=== PATIENT | female | born 1995 | race Caucasian/White ===

== ENCOUNTER → 2018-02-13 | Outpatient (REF) | payer OTHER | LOC: M LAB REF 10:32 | DX: J02.9 Acute pharyngitis, unspecified (principal) ==

== ENCOUNTER → 2021-07-28 | Outpatient (CLI) | payer OTHER ==
--- NOTE | 2021-07-28 13:50 | REP ---
INDICATION: ANATOMY. COMPARISON: None. TECHNIQUE: Standard 2nd trimester anatomy screening protocol. FINDINGS: Scanning demonstrates a viable single intrauterine gestation in a cephalic lie. motion is observed and heart rate is recorded at 164 beats per minute. A posterior, grade zero placenta is seen without evidence of previa. Umbilical cord demonstrates a mid insertion. Amniotic fluid is subjectively normal. Closed cervical length is measured at 3.6 cm transabdominally. No extrauterine abnormality is observed. No anomaly is seen. The following anatomic structures are identified and felt to be sonographically unremarkable: cranium, choroid plexus, cavum, cerebellum and posterior fossa, face and profile, lungs, four-chamber heart with left and right ventricular outflow tract views, diaphragm, left-sided stomach, abdominal wall cord insertion, three-vessel umbilical cord, kidneys and bladder, spine, and upper and lower extremities. Biometry chart: BPD 5.0 cm; 21 weeks 2 days Head circumference 18 point cm; 20 weeks 1 days Abdominal circumference 71 cm; 22 weeks 1 days Femur length 3.6 cm; 21 weeks 2 days Humeral length 3.5 cm; 22 weeks 0 days HC/AC ratio normal 1.1 Cephalic index normal 0.73 Estimated weight 442 grams, 0 pounds 15 ounces, 58 percentile for 21 weeks 3 days. IMPRESSION: Viable single intrauterine gestation at 21 weeks 4 days by today's composite sonographic criteria. Expected gestational age estimate based on supplied the JOSE is 21 weeks is 3 days. JOSE by prior sonography 12/05/2021. No anomaly. <Electronically signed by Yuniel Simmons > 07/28/21 [id number]
== END ==
LOC: M WHC 07:57
PROVIDERS: ATTEND Specialist
DX: Z34.02 Encounter for supervision of normal first pregnancy, second trimester (principal); Z3A.21 21 weeks gestation of pregnancy

== ENCOUNTER → 2021-09-15 | Outpatient (CLI) | payer OTHER ==
[2021-09-15 17:55] LABS: HEMATOCRIT 36.3 % (36.0-47.0); MEAN CORPUSCULAR HEMOGLOBIN 30.5 pg (27.0-33.0); MEAN CORPUSCULAR HGB CONC 33.1 g/dl (32.0-36.5); MEAN CORPUSCULAR VOLUME 92.1 fl (80.0-96.0); PLATELET COUNT, AUTOMATED 214 10^3/uL (150-450); RED BLOOD COUNT 3.94 10^6/uL (4.00-5.40); WHITE BLOOD COUNT 11.4 10^3/uL (4.0-10.0)
== END ==
LOC: M PLALAB 13:17
PROVIDERS: ATTEND Advanced Practice Midwife
DX: Z36.9 Encounter for antenatal screening, unspecified (principal); Z3A.24 24 weeks gestation of pregnancy

== ENCOUNTER → 2021-11-10 | Outpatient (REF) | payer OTHER | LOC: M LAB REF 16:40 | PROVIDERS: ATTEND Specialist | DX: Z36.85 Encounter for antenatal screening for Streptococcus B (principal) ==

== ENCOUNTER 2021-12-07 21:55 | Inpatient (IN) | payer OTHER ==
[~2021-12-07] VITALS: Ht 157.5 cm; Wt 78.0 kg
[2021-12-07] MEDS ORDERED: PRENTAB9 PO (22:15)
[2021-12-07 22:20] VITALS: BP 139/83
[2021-12-07] MEDS ORDERED: HOME MED LIST COMPLETE! XX SCH (22:35)
[2021-12-07] MEDS ORDERED: PENICILLIN G POTASSIUM IV 5 MU in D5W MINI-BAG PLUS 100 ML IV STA (23:18)
[2021-12-07] MEDS ORDERED: OXYTOCIN DRIP 30 UNITS in IV 1 EA IV PRN ×4 (23:20)
[2021-12-07] MEDS ORDERED: METHYLERGONOVINE MALEATE 0.2 MG/ML VIAL (J2210) IM PRN (23:20)
[2021-12-07] MEDS ORDERED: LIDOCAINE 1% MDV 20ML VIAL INFIL PRN (23:20)
[2021-12-07] MEDS ORDERED: OXYTOCIN DRIP 30 UNITS in IV 1 EA IV SCH (23:20)
[2021-12-07] MEDS ORDERED: OXYTOCIN INJ 10 UNITS/ML VIAL (J2590) IM PRN (23:20)
[2021-12-07] MEDS ORDERED: TRANEXAMIC ACID INJection 1,000 MG in NS 100 ML IV PRN (23:20)
[2021-12-07] MEDS ORDERED: LACTATED RINGER'S 1000 ML IV ONE (23:25)
[2021-12-08] VITALS (60 sets, daily range): BP systolic 92–171; BP diastolic 51–117
[2021-12-08] MEDS: LR 1,000 ML IV SCH ×4 (00:18→14:00)
[2021-12-08 00:35] LABS: HEMATOCRIT 40.3 % (36.0-47.0); HEMOGLOBIN 13.8 g/dl (12.0-15.5); MEAN CORPUSCULAR HEMOGLOBIN 30.3 pg (27.0-33.0); MEAN CORPUSCULAR HGB CONC 34.2 g/dl (32.0-36.5); MEAN CORPUSCULAR VOLUME 88.4 fl (80.0-96.0); PLATELET COUNT, AUTOMATED 185 10^3/uL (150-450); RED BLOOD COUNT 4.56 10^6/uL (4.00-5.40); WHITE BLOOD COUNT 10.9 10^3/uL (4.0-10.0)
[2021-12-08 01:32] LABS: HEPATITIS C VIRUS ABY INDEX 0.2 INDEX (<0.8)
[2021-12-08] MEDS ORDERED: FENTANYL 2MCG/ML ROPIVACAINE 0.2% IN 0.9% NACL 100ML IVBAG As Ordered ONE (03:14)
[2021-12-08] MEDS ORDERED: EPIDURAL/PCA KEYS XX PRN (04:40)
[2021-12-08] MEDS ORDERED: ePHEDrine SULFATE 25 MG/5 ML(5MG/ML) SYRINGE IV PRN (04:40)
[2021-12-08] MEDS ORDERED: LACTATED RINGER'S 1000 ML IV PRN (04:40)
[2021-12-08] MEDS ORDERED: diphenhydrAMINE 50MG/ML VIAL (J1200) IV PRN ×2 (04:40→22:25)
[2021-12-08] MEDS ORDERED: EPIDURAL COMMENT XX SCH (04:40)
[2021-12-08] MEDS ORDERED: ONDANSETRON 4MG/2ML VIAL IV PRN ×3 (04:40→23:25)
[2021-12-08] MEDS ORDERED: REFRIGERATOR IV KEYS XX PRN (04:40)
[2021-12-08] MEDS ORDERED: NALOXONE INJ 0.4MG/1ML VIAL (J2310 PER 1MG) IV PRN ×3 (04:40→22:25)
[2021-12-08] MEDS: FENTANYL/ROPIVACAINE/NACL BAG 100 ML EPIDURAL SCH ×3 (04:49→19:13)
[2021-12-08] MEDS: PENICILLIN G POTASSIUM IV 2.5 MU in IV 1 EA IV SCH ×5 (05:19→20:56)
[2021-12-08] MEDS ORDERED: ceFAZolin SOD 2 GM in IV 1 EA IV ONE (21:45)
[2021-12-08] MEDS ORDERED: BICITRA 30ML SOLN UDC PO ONE (21:45)
[2021-12-08] MEDS ORDERED: AZITHROMYCIN INJ 500 MG, VIAL MATE ADAPTER 1 EACH in NS 250 ML IV ONE (21:45)
[2021-12-08] MEDS ORDERED: MORPHINE PRES-FREE INJ 10 MG/10 ML VIAL As Ordered ONE (22:12)
[2021-12-08] MEDS ORDERED: dexameTHASONE 4 MG/ML 1ML VIAL (J1100 PER 1MG) As Ordered ONE (22:12)
[2021-12-08] MEDS ORDERED: KETOROLAC 60MG 2ML VIAL As Ordered ONE (22:12)
[2021-12-08] MEDS ORDERED: ONDANSETRON 4MG/2ML VIAL As Ordered ONE (22:12)
[2021-12-08] MEDS ORDERED: METOCLOPRAMIDE INJ 10MG/2ML VIAL (J2765 PER 1) As Ordered ONE (22:12)
[2021-12-08] MEDS ORDERED: OXYTOCIN 30 UNITS IN 0.9% NaCl 500ML IV BAG (J2590) As Ordered ONE ×2 (22:12→22:56)
[2021-12-08] MEDS ORDERED: PHENYLephrine 500MCG 5ML (100MCG/ML) SYRINGE As Ordered ONE (22:13)
[2021-12-08] MEDS ORDERED: METOCLOPRAMIDE INJ 10MG/2ML VIAL (J2765 PER 1) IV PRN (22:25)
[2021-12-08] MEDS ORDERED: NALBUPHINE HCL 10 MG/ML AMP (J2300) IV PRN ×2 (22:25→23:25)
[2021-12-08] MEDS ORDERED: OXYTOCIN DRIP 30 UNITS in IV 1 EA IV SCH (23:00)
[2021-12-08] MEDS ORDERED: SIMETHICONE 80MG CHEW TAB PO PRN (23:00)
[2021-12-08] MEDS ORDERED: RHOGAM 300 MCG (1500 IU) INJ (J2790) IM SCH (23:00)
[2021-12-08] MEDS ORDERED: PERCOCET 5MG/325MG TAB PO PRN (23:00)
[2021-12-08] MEDS ORDERED: DOCUSATE SODIUM 100MG CAPSULE PO PRN (23:00)
[2021-12-08] MEDS ORDERED: MEASLES,MUMPS,RUBELLA VACCINE INJ (MMR-II) (90707) SC SCH (23:00)
[2021-12-08] MEDS ORDERED: LR 1,000 ML IV SCH (23:25)
[2021-12-08] MEDS ORDERED: MORPHINE 4 MG/ML 1ML VIAL/SYRINGE IV PRN (23:25)
[2021-12-08] MEDS ORDERED: oxyCODONE 5MG TAB PO PRN (23:25)
[2021-12-08] MEDS ORDERED: fentaNYL 100 MCG/2 ML INJECTION IV PRN (23:25)
[2021-12-08] MEDS ORDERED: IBUP80TA PO (23:32)
[2021-12-08] MEDS ORDERED: OXYC1TAB23 PO (23:32)
[2021-12-09] VITALS (11 sets, daily range): BP systolic 122–140; BP diastolic 68–85
[2021-12-09] MEDS: LR 1,000 ML IV SCH ×2 (03:18→10:45)
[2021-12-09] MEDS: KETOROLAC 30 MG/ML 1ML VIAL IV SCH ×3 (04:46→17:18)
[2021-12-09 07:15] LABS: HEMATOCRIT 30.6 % (36.0-47.0); MEAN CORPUSCULAR HEMOGLOBIN 30.3 pg (27.0-33.0); MEAN CORPUSCULAR VOLUME 89.2 fl (80.0-96.0); PLATELET COUNT, AUTOMATED 142 10^3/uL (150-450); RED BLOOD COUNT 3.43 10^6/uL (4.00-5.40); WHITE BLOOD COUNT 16.2 10^3/uL (4.0-10.0)
[2021-12-09 07:18] LABS: HEMOGLOBIN 10.4 g/dl (12.0-15.5)
[2021-12-09] MEDS: PRENATAL VITAMINS CHEWABLE TABLET PO SCH (08:32)
[2021-12-09] MEDS: PERCOCET 5MG/325MG TAB PO PRN (20:38)
[2021-12-10] MEDS: IBUPROFEN 800 MG TAB PO SCH ×3 (01:12→17:24)
[2021-12-10 02:00] VITALS: BP 133/85
[2021-12-10 06:00] VITALS: BP 144/80
[2021-12-10] MEDS: PRENATAL VITAMINS CHEWABLE TABLET PO SCH (08:23)
[2021-12-10 10:00] VITALS: BP 118/68
[2021-12-10] MEDS: DOCUSATE SODIUM 100MG CAPSULE PO SCH ×2 (11:52→21:28)
[2021-12-10 14:00] VITALS: BP 129/73
[2021-12-10 18:01] VITALS: BP 129/79
[2021-12-10] MEDS: PERCOCET 5MG/325MG TAB PO PRN (21:37)
[2021-12-10 22:00] VITALS: BP 137/88
[2021-12-11 02:00] VITALS: BP 147/89
[2021-12-11] MEDS: IBUPROFEN 800 MG TAB PO SCH ×2 (02:14→08:26)
[2021-12-11 05:27] VITALS: BP 135/83
[2021-12-11] MEDS: DOCUSATE SODIUM 100MG CAPSULE PO SCH (08:26)
[2021-12-11] MEDS: PRENATAL VITAMINS CHEWABLE TABLET PO SCH (08:26)
== END 2021-12-11 14:15 | disposition home or self-care (01) | DRG 788 ==
LOC: M LDO 21:55 → M LDI 23:48 → M OBS 12-09 00:27
PROVIDERS: ADMIT Advanced Practice Midwife; ATTEND Advanced Practice Midwife
PROC: 3E033VJ Introduction of Other Hormone into Peripheral Vein, Percutaneous Approach (ICD-10-PCS; 2021-12-07)
PROC: 10D00Z1 Extraction of Products of Conception, Low, Open Approach (ICD-10-PCS; principal; 2021-12-08 21:45)
DX: O48.0 Post-term pregnancy (principal); Z37.0 Single live birth; Z3A.40 40 weeks gestation of pregnancy; O42.02 Full-term premature rupture of membranes, onset of labor within 24 hours of rupture; O62.0 Primary inadequate contractions

== ENCOUNTER → 2022-06-08 | Outpatient (REF) | payer OTHER ==
[~2022-06-08] MED LIST: IBUP80TA PO; OXYC1TAB23 PO; PRENTAB9 PO
== END ==
LOC: M WUC 09:50
PROVIDERS: ATTEND Physician Assistant
DX: J02.9 Acute pharyngitis, unspecified (principal)

== ENCOUNTER → 2022-11-27 | Outpatient (CLI) | payer OTHER ==
[~2022-11-27] MED LIST changes: +MULTTAB61 PO
== END ==
LOC: M LABSMTC 07:34
PROVIDERS: ATTEND Anesthesiology
DX: Z01.812 Encounter for preprocedural laboratory examination (principal); Z11.52 Encounter for screening for COVID-19

== ENCOUNTER 2022-11-29 06:35 | Day surgery (SDC) | payer OTHER ==
[~2022-11-29] VITALS: Ht 154.9 cm; Wt 55.2 kg
[~2022-11-29 06:35] MED LIST changes: +NS 1,000 ML IV ONE
[2022-11-29] MEDS ORDERED: LIDOCAINE 2% 100MG/5ML SDV (FOR ANES.) As Ordered ONE (07:14)
[2022-11-29] MEDS ORDERED: propofoL 200 MG/20 ML VIAL As Ordered ONE (07:14)
[2022-11-29 08:20] VITALS: BP 117/59
== END 2022-11-29 08:26 | disposition home or self-care (01) ==
LOC: M OPP 06:35
PROVIDERS: ATTEND Surgery
DX: D12.8 Benign neoplasm of rectum (principal); K64.1 Second degree hemorrhoids; K92.1 Melena; Z80.0 Family history of malignant neoplasm of digestive organs

== ENCOUNTER → 2023-12-17 | Outpatient (REF) | payer OTHER ==
[~2023-12-17] MED LIST changes: -NS 1,000 ML IV ONE
== END ==
LOC: M PLALAB 15:14
PROVIDERS: ATTEND Advanced Practice Midwife
DX: Z34.91 Encounter for supervision of normal pregnancy, unspecified, first trimester (principal)

== ENCOUNTER → 2023-12-25 | Outpatient (CLI) | payer OTHER ==
[2023-12-25 17:36] LABS: HEMOGLOBIN 12.6 g/dl (12.0-15.5); MEAN CORPUSCULAR HEMOGLOBIN 29.4 pg (27.0-33.0); MEAN CORPUSCULAR HGB CONC 34.1 g/dl (32.0-36.5); MEAN CORPUSCULAR VOLUME 86.4 fl (80.0-96.0); PLATELET COUNT, AUTOMATED 270 10^3/uL (150-450); RED BLOOD COUNT 4.28 10^6/uL (4.00-5.40); WHITE BLOOD COUNT 10.8 10^3/uL (4.0-10.0)
[2023-12-25 18:32] LABS: HIV 1&2 SCREEN NEGATIVE (NEGATIVE)
[2023-12-25 18:41] LABS: HEPATITIS C VIRUS ABY INDEX < 0.02 INDEX (<0.8)
[2023-12-25 21:20] LABS: GC DNA AMPLIFICATION NEGATIVE (NEGATIVE)
== END ==
LOC: M PLALAB 15:30
PROVIDERS: ATTEND Advanced Practice Midwife
DX: Z34.91 Encounter for supervision of normal pregnancy, unspecified, first trimester (principal); Z3A.00 Weeks of gestation of pregnancy not specified

== ENCOUNTER → 2024-02-18 | Outpatient (CLI) | payer OTHER | LOC: M WHC 07:47 | PROVIDERS: ATTEND Advanced Practice Midwife | DX: Z34.82 Encounter for supervision of other normal pregnancy, second trimester (principal); Z3A.19 19 weeks gestation of pregnancy ==

== ENCOUNTER → 2024-03-07 | Outpatient (CLI) | payer OTHER | LOC: M WHC 13:53 | PROVIDERS: ATTEND Advanced Practice Midwife | DX: Z34.02 Encounter for supervision of normal first pregnancy, second trimester (principal) ==

== ENCOUNTER 2024-11-01 17:59 | Emergency (ER) | payer OTHER ==
[~2024-11-01] VITALS: Ht 154.9 cm; Wt 67.9 kg
[2024-11-01 19:46] LABS: BASO % 0.4 % (0.0-1.0); EOS # 0.1 10^3/uL (0.0-0.5); EOS % 1.6 % (0.0-3.0); HEMATOCRIT 41.1 % (36.0-47.0); HEMOGLOBIN 14.1 g/dl (12.0-15.5); KETONE, URINE AUTO RFX NEGATIVE (NEGATIVE); LEUKOCYTE ESTERASE UR AUTO RFX NEGATIVE (NEGATIVE); LYMPH # 3.4 10^3/uL (1.5-5.0); LYMPH % 39.4 % (24.0-44.0); MEAN CORPUSCULAR HEMOGLOBIN 29.6 pg (27.0-33.0); MEAN CORPUSCULAR HGB CONC 34.3 g/dl (32.0-36.5); MEAN CORPUSCULAR VOLUME 86.2 fl (80.0-96.0); MONO # 0.5 10^3/uL (0.0-0.8); MONO % 5.3 % (2.0-8.0); NEUTROPHILS # 4.5 10^3/uL (1.5-8.5); NEUTROPHILS % 53.1 % (36.0-66.0); NITRITE, URINE AUTO RFX NEGATIVE (NEGATIVE); PLATELET COUNT, AUTOMATED 300 10^3/uL (150-450); RBC, URINE AUTO RFX 0 /HPF (0-3); RED BLOOD COUNT 4.77 10^6/uL (4.00-5.40); SQUAM EPITHELIAL CELL UR AURFX 0 /HPF (0-6); WBC, URINE AUTO RFX 1 /HPF (0-3); WHITE BLOOD COUNT 8.5 10^3/uL (4.0-10.0)
[2024-11-01 20:30] LABS: BLOOD UREA NITROGEN 12 MG/DL (9-23); CALCIUM LEVEL 9.2 MG/DL (8.5-10.1); CARBON DIOXIDE LEVEL 27 MMOL/L (20-31); CHLORIDE LEVEL 106 MMOL/L (98-107); CREATININE FOR GFR 0.64 MG/DL (0.55-1.30); GLOMERULAR FILTRATION RATE > 60.0 (>60); GLUCOSE, FASTING 68 MG/DL (60-100); POTASSIUM SERUM 3.9 MMOL/L (3.5-5.1); SODIUM LEVEL 143 MMOL/L (136-145)
[2024-11-01 20:57] VITALS: BP 120/71; TEMP 96.8; O2SAT 100
== END 2024-11-01 20:58 | disposition home or self-care (01) ==
LOC: M ED 17:59
DX: R10.30 Lower abdominal pain, unspecified (principal)